=== PATIENT | female | born 1970 | race Caucasian/White ===

== ENCOUNTER 2022-12-09 19:20 | Inpatient (IN) | payer MEDICAID ==
[~2022-12-09] VITALS: Ht 167.6 cm; Wt 99.8 kg
[2022-12-09 19:30] VITALS: BP_SYST 120
[2022-12-09 20:30] LABS: MEAN CORPUSCULAR VOLUME 87 fL (79.0-98.0)
[2022-12-09 20:38] LABS: ANION GAP 8 (5-15); CALCIUM 9.3 mg/dL (8.4-11.0); CHLORIDE 102 mmol/L (98-107); CREATININE 0.88 mg/dL (0.55-1.30); GLUCOSE 101 mg/dL (70-99); UREA NITROGEN, BLOOD 20 mg/dL (8-21)
[2022-12-09 20:40] LABS: GFR AFRICAN AMERICAN 87 mL/min (>90); HEMOGLOBIN 14.1 g/dL (12.0-16.0); MEAN CORPUSCULAR HEMOGLOBIN 29 pg (27-31); MEAN CORPUSCULAR HGB CONC 34 % (32-36); PLATELET COUNT (AUTO) 290 K/uL (130-430); RED BLOOD CELL COUNT(AUTO) 4.84 MIL/uL (4.2-6.2); RED CELL DISTRIBUTION WIDTH 14.2 % (9.0-15.0)
[2022-12-09 20:41] LABS: WHITE BLOOD COUNT (AUTO) 24.4 K/uL (4.8-10.8)
[2022-12-09 20:45] LABS: ALANINE AMINOTRANSFERASE 28 U/L (12-78); ALBUMIN 3.6 g/dL (3.4-4.8); ASPARTATE AMINOTRANSFERASE 21 U/L (10-37); TOTAL BILIRUBIN 0.4 mg/dL (0.0-1.0)
[2022-12-09 20:48] LABS: BAND % (MANUAL) 5 % (0-6); BASOPHILS % (MANUAL) 0 % (0-2); EOSINOPHILS % (MANUAL) 0 % (0-7); LYMPHOCYTES % (MANUAL) 4 % (20-46); MONOCYTES % (MANUAL) 1 % (0-11)
[2022-12-09] MEDS ORDERED: NACL 0.9% 2,000 ML IV ONE (21:15)
[2022-12-09] MEDS ORDERED: cefTRIAXone 1 GM in D5W 50 ML IV ONE (21:15)
[2022-12-09] MEDS ORDERED: KETOROLAC TROMETHAMINE 30 MG VIAL IVP ONE (21:15)
[2022-12-09] MEDS ORDERED: cefTRIAXone 1 GM VIAL ONE (21:34)
[2022-12-09 22:15] LABS: BILIRUBIN,URINE NEGATIVE (NEGATIVE); BLOOD, URINE NEGATIVE (NEGATIVE); CLARITY/URINE CLEAR (CLEAR); COLOR,URINE YELLOW (YELLOW); GLUCOSE,URINE NEGATIVE (NEGATIVE); KETONES,URINE NEGATIVE (NEGATIVE); LEUKOCYTE ESTERASE ,URINE NEGATIVE (NEGATIVE); NITRITE, URINE NEGATIVE (NEGATIVE); PROTEIN URINE NEGATIVE (NEGATIVE); UROBILINOGEN,URINE 0.2 (0.2-1.0)
[2022-12-09 22:22] LABS: PROTHROMBIN TIME 9.7 SECS (9.5-12.5)
[2022-12-10] MEDS ORDERED: ONDANSETRON HCL 4 MG/2 ML VIAL IVP ONE (00:15)
[2022-12-10] MEDS ORDERED: ACETAMINOPHEN 500 MG TABLET PO ONE (04:30)
[2022-12-10 10:22] VITALS: BP_SYST 120
[2022-12-10] MEDS ORDERED: ACETAMINOPHEN 325 MG TABLET PO PRN (10:30)
[2022-12-10] MEDS ORDERED: HYDROcodone/ACETAMIN 5-325 MG TAB (NORCO/ VICODIN) PO PRN (10:30)
[2022-12-10] MEDS ORDERED: NALOXONE HCL 0.4 MG/ML AMP (NARCAN) IVP PRN ×2 (10:30)
[2022-12-10] MEDS ORDERED: HYDROcodone/ACETAMIN 10-325 MG TAB PO PRN (10:30)
[2022-12-10 11:06] VITALS: BP_SYST 12
[2022-12-10] MEDS: ONDANSETRON HCL 4 MG/2 ML VIAL IVP PRN ×2 (11:20→16:56)
[2022-12-10] MEDS: KETOROLAC TROMETHAMINE 30 MG VIAL IVP PRN ×3 (11:21→23:08)
[2022-12-10] MEDS: ALBUTEROL SULFATE 0.083% 2.5 MG/3 ML VIAL.NEB INH PRN ×3 (11:49→20:03)
[2022-12-10] MEDS: IPRATROPIUM BROM 0.5 MG/2.5 ML VIAL.NEB (ATROVENT) INH PRN ×2 (11:49→16:23)
[2022-12-10] MEDS: AZITHROMYCIN 500 MG in NS 250 ML IV SCH (12:15)
[2022-12-10] MEDS: NORMAL SALINE 5 ML DISP.SYRIN IVF SCH ×2 (13:42→22:30)
[2022-12-10] MEDS ORDERED: NORMAL SALINE 5 ML DISP.SYRIN IVF SCH (14:00)
[2022-12-10 14:33] VITALS: BP_SYST 105
[2022-12-10 20:00] VITALS: BP_SYST 108
[2022-12-10] MEDS: cefTRIAXone 1 GM IVPB PREMIX 50 ML IV SCH (20:13)
[2022-12-10] MEDS: ACETAMINOPHEN 325 MG TABLET PO PRN (22:14)
[2022-12-10] MEDS: IPRATROPIUM/ALBUTEROL SULFATE 3 ML AMPUL.NEB (DUONEB) INH SCH (23:38)
[2022-12-11] VITALS: BP_SYST 110
[2022-12-11] MEDS: IPRATROPIUM/ALBUTEROL SULFATE 3 ML AMPUL.NEB (DUONEB) INH SCH ×6 (03:00→23:26)
[2022-12-11] MEDS: NORMAL SALINE 5 ML DISP.SYRIN IVF SCH ×3 (05:12→21:03)
[2022-12-11 06:59] LABS: BASOPHILS % (AUTO) 0.2 % (0.0-2.0); EOSINOPHILS # (AUTO) 0.3 K/uL (0.0-0.4); EOSINOPHILS % (AUTO) 2.6 % (0.0-4.0); HEMATOCRIT 34.5 % (36-48); HEMOGLOBIN 11.5 g/dL (12.0-16.0); LYMPHOCYTES # (AUTO) 1.5 K/uL (1.0-5.5); LYMPHOCYTES % (AUTO) 11.6 % (20.5-51.5); MEAN CORPUSCULAR HEMOGLOBIN 29 pg (27-31); MEAN CORPUSCULAR HGB CONC 33 % (32-36); MEAN CORPUSCULAR VOLUME 88 fL (79.0-98.0); MONOCYTES # (AUTO) 0.5 K/uL (0.0-1.0); NEUTROPHILS # (AUTO) 10.7 K/uL (1.8-7.7); NEUTROPHILS % (AUTO) 81.6 % (40.0-70.0); PLATELET COUNT (AUTO) 238 K/uL (130-430); RED BLOOD CELL COUNT(AUTO) 3.92 MIL/uL (4.2-6.2); RED CELL DISTRIBUTION WIDTH 14.3 % (9.0-15.0); WHITE BLOOD COUNT (AUTO) 13.2 K/uL (4.8-10.8)
[2022-12-11 08:34] LABS: ALBUMIN 2.7 g/dL (3.4-4.8); CALCIUM 8.5 mg/dL (8.4-11.0); CREATININE 0.7 mg/dL (0.55-1.30); TOTAL BILIRUBIN 0.3 mg/dL (0.0-1.0)
[2022-12-11] MEDS: ONDANSETRON HCL 4 MG/2 ML VIAL IVP PRN (11:21)
[2022-12-11] MEDS: AZITHROMYCIN 500 MG in NS 250 ML IV SCH (11:29)
[2022-12-11 11:32] VITALS: BP_SYST 108
[2022-12-11 15:20] VITALS: BP_SYST 125
[2022-12-11] MEDS ORDERED: METOCLOPRAMIDE HCL 10 MG/2 ML VIAL IVP PRN (18:30)
[2022-12-11 20:00] VITALS: BP_SYST 125
[2022-12-11] MEDS: cefTRIAXone 1 GM IVPB PREMIX 50 ML IV SCH (21:02)
[2022-12-12] MEDS ORDERED: ACETAMINOPHEN 500 MG TABLET PO PRN (00:15)
[2022-12-12 01:48] VITALS: BP_SYST 123
[2022-12-12] MEDS: IPRATROPIUM/ALBUTEROL SULFATE 3 ML AMPUL.NEB (DUONEB) INH SCH ×6 (02:28→23:58)
[2022-12-12] MEDS: NORMAL SALINE 5 ML DISP.SYRIN IVF SCH ×2 (05:50→22:00)
[2022-12-12 07:03] LABS: BASOPHILS % (AUTO) 0.5 % (0.0-2.0); EOSINOPHILS # (AUTO) 0.3 K/uL (0.0-0.4); EOSINOPHILS % (AUTO) 3.7 % (0.0-4.0); HEMATOCRIT 34.5 % (36-48); LYMPHOCYTES # (AUTO) 1.9 K/uL (1.0-5.5); MEAN CORPUSCULAR HEMOGLOBIN 30 pg (27-31); MEAN CORPUSCULAR HGB CONC 35 % (32-36); MEAN CORPUSCULAR VOLUME 87 fL (79.0-98.0); MONOCYTES # (AUTO) 0.5 K/uL (0.0-1.0); MONOCYTES % (AUTO) 5.7 % (1.7-9.3); NEUTROPHILS # (AUTO) 6.2 K/uL (1.8-7.7); NEUTROPHILS % (AUTO) 69.1 % (40.0-70.0); PLATELET COUNT (AUTO) 265 K/uL (130-430); RED BLOOD CELL COUNT(AUTO) 3.97 MIL/uL (4.2-6.2); RED CELL DISTRIBUTION WIDTH 13.9 % (9.0-15.0)
[2022-12-12 07:21] LABS: C-REACTIVE PROTEIN QUANT 8.1 mg/dL (0-0.5); CALCIUM 8.8 mg/dL (8.4-11.0); CREATININE 0.68 mg/dL (0.55-1.30)
[2022-12-12 08:55] VITALS: BP_SYST 114
[2022-12-12] MEDS: ACETAMINOPHEN 325 MG TABLET PO PRN ×2 (09:29→22:08)
[2022-12-12] MEDS: AZITHROMYCIN 250 MG TABLET PO SCH (09:31)
[2022-12-12 10:45] LABS: ERYTHROCYTE SEDIMENTATION RATE 46 MM/HR (0-20)
[2022-12-12 11:38] VITALS: BP_SYST 114
[2022-12-12 15:57] VITALS: BP_SYST 123
[2022-12-12 19:00] VITALS: BP_SYST 117
[2022-12-12] MEDS: cefTRIAXone 1 GM IVPB PREMIX 50 ML IV SCH (22:00)
[2022-12-13] VITALS: BP_SYST 112
[2022-12-13 06:33] LABS: BASOPHILS % (AUTO) 0.3 % (0.0-2.0); EOSINOPHILS # (AUTO) 0.2 K/uL (0.0-0.4); EOSINOPHILS % (AUTO) 3.1 % (0.0-4.0); HEMATOCRIT 35.3 % (36-48); LYMPHOCYTES # (AUTO) 2.2 K/uL (1.0-5.5); MEAN CORPUSCULAR HEMOGLOBIN 30 pg (27-31); MEAN CORPUSCULAR HGB CONC 34 % (32-36); MEAN CORPUSCULAR VOLUME 87 fL (79.0-98.0); MONOCYTES # (AUTO) 0.5 K/uL (0.0-1.0); MONOCYTES % (AUTO) 6.3 % (1.7-9.3); NEUTROPHILS # (AUTO) 4.4 K/uL (1.8-7.7); NEUTROPHILS % (AUTO) 60.3 % (40.0-70.0); PLATELET COUNT (AUTO) 260 K/uL (130-430); RED BLOOD CELL COUNT(AUTO) 4.08 MIL/uL (4.2-6.2); RED CELL DISTRIBUTION WIDTH 13.8 % (9.0-15.0); WHITE BLOOD COUNT (AUTO) 7.3 K/uL (4.8-10.8)
[2022-12-13] MEDS: NORMAL SALINE 5 ML DISP.SYRIN IVF SCH (06:34)
[2022-12-13] MEDS: IPRATROPIUM/ALBUTEROL SULFATE 3 ML AMPUL.NEB (DUONEB) INH SCH (07:00)
[2022-12-13 07:08] LABS: ALBUMIN 2.8 g/dL (3.4-4.8); C-REACTIVE PROTEIN QUANT 3.5 mg/dL (0-0.5); CALCIUM 8.8 mg/dL (8.4-11.0); CREATININE 0.75 mg/dL (0.55-1.30); TOTAL BILIRUBIN 0.3 mg/dL (0.0-1.0)
[2022-12-13 08:00] VITALS: BP_SYST 126
[2022-12-13] MEDS ORDERED: LEVO750T64 PO (09:28)
[2022-12-13] MEDS: AZITHROMYCIN 250 MG TABLET PO SCH (09:31)
[2022-12-13] MEDS ORDERED: POTASSIUM CHLORIDE 20 MEQ TAB.PRT.SR PO ONE (09:45)
[2022-12-13 09:53] VITALS: BP_SYST 126
[2022-12-13 10:25] LABS: ERYTHROCYTE SEDIMENTATION RATE 43 MM/HR (0-20)
== END 2022-12-13 10:18 | disposition home or self-care (01) | DRG 720 ==
LOC: SED 19:20 → STU 12-10 01:20 → SMU 12-12 17:51
PROVIDERS: ADMIT Preventive Medicine Preventive Medicine/Occupational Environmental Medicine; ATTEND Preventive Medicine Preventive Medicine/Occupational Environmental Medicine
DX: A41.9 Sepsis, unspecified organism (principal); J96.01 Acute respiratory failure with hypoxia; J18.9 Pneumonia, unspecified organism; J44.1 Chronic obstructive pulmonary disease with (acute) exacerbation; R73.9 Hyperglycemia, unspecified; E66.2 Morbid (severe) obesity with alveolar hypoventilation; Z20.822 Contact with and (suspected) exposure to COVID-19; J44.0 Chronic obstructive pulmonary disease with (acute) lower respiratory infection; D64.9 Anemia, unspecified; Z88.2 Allergy status to sulfonamides; Z88.8 Allergy status to other drugs, medicaments and biological substances; Z91.041 Radiographic dye allergy status; Z91.040 Latex allergy status; Z79.899 Other long term (current) drug therapy; Z68.35 Body mass index [BMI] 35.0-35.9, adult
CPT/HCPCS: 36415; 70210-TC; 71045; 78579; 78580-TC; 80048; 80053; 81003; 83605; 83880; 84484; 85007; 85025; 85027; 85379; 85610-TC; 85651-TC; 85730-TC; 86140; 87040; 87086; 87205-TC; 93005; 93970; 94640; 94760; 96365; 96375; 97163-GP; 99285; A9539; A9540; G0378; J0456; J0696; J1885; J2405; J2765; J7050; J7613; Q0144; U0003